=== PATIENT | male | born 1965 | race Caucasian/White ===

== ENCOUNTER 2017-02-02 11:57 | Emergency (ER) | payer SELFPAY ==
[~2017-02-02] VITALS: Ht 177.8 cm; Wt 111.0 kg
[2017-02-02 12:03] VITALS: BP 154/96
[2017-02-02] MEDS ORDERED: LIDOCAINE 1%, 20ML ONE (12:21)
[2017-02-02] MEDS ORDERED: LIDOCAINE 1%, 20ML INFIL ONE (12:30)
[2017-02-02] MEDS ORDERED: FLUT1BLS INH (12:35)
[2017-02-02] MEDS ORDERED: FLUO10CA13 PO (12:35)
== END 2017-02-02 13:12 | disposition home or self-care (01) ==
LOC: ED 13:06
DX: S61.231A Puncture wound without foreign body of left index finger without damage to nail, initial encounter (principal); W22.8XXA Striking against or struck by other objects, initial encounter; L03.012 Cellulitis of left finger; Y93.89 Activity, other specified; Y92.009 Unspecified place in unspecified non-institutional (private) residence as the place of occurrence of the external cause; Y99.8 Other external cause status
CPT/HCPCS: 29130; 64450